=== PATIENT | female | born 1965 | race Caucasian/White ===

== ENCOUNTER 2018-06-27 12:00 | Observation (INO) | payer SELFPAY ==
--- NOTE | 2018-06-27 12:30 | ER Document Report ---
ED Medical Screen (RME) - General Chief Complaint: Numbness of Arm Stated Complaint: NECK/SHOULDER PAIN, ARM TINGLING Time Seen by Provider: 06/27/18 12:19 Mode of Arrival: Ambulatory Information source: Patient, [facility] Records Notes: 53-year-old female with COPD, ulcerative colitis presents with concern for left arm paresthesias, confusion, inability to speak that occurred 1 hour prior to arrival while at work. Patient denies prior similar symptoms. I have greeted and performed a rapid initial assessment of this patient. A comprehensive ED assessment and evaluation of the patient, analysis of test results and completion of medical decision making process we will be contacted by additional ED providers. General; no acute distress Neuro; cranial nerves II through XII intact Respiratory; clear to auscultation bilaterally TRAVEL OUTSIDE OF THE [place] IN LAST 30 DAYS: No - HPI Onset: Just prior to arrival Onset/Duration: Sudden Associated Symptoms: Slow to respond Exacerbated by: Denies Relieved by: Denies Similar symptoms previously: No Recently seen / treated by doctor: No - Related Data Smoking: Cigarettes Frequency of alcohol use: None Drug Abuse: None Allergies/Adverse Reactions: No Known Allergies Allergy (Unverified 06/27/18 12:03) Past Medical History Pulmonary Medical History: Reports: Hx COPD Renal/ Medical History: Denies: Hx Peritoneal Dialysis Past Surgical History: Reports: Hx Hysterectomy Physical Exam - Vital signs Vitals: Temp Pulse Resp BP Pulse Ox 97.6 F 67 16 130/77 H 97 06/27/18 12:08 06/27/18 12:08 06/27/18 12:08 06/27/18 12:08 06/27/18 12:08 Course - Vital Signs Vital signs: Temp Pulse Resp BP Pulse Ox 97.6 F 67 16 130/77 H 97 06/27/18 12:08 06/27/18 12:08 06/27/18 12:08 06/27/18 12:08 06/27/18 12:08
--- NOTE | 2018-06-27 12:52 | RADIOLOGY REPORT (SQ) ---
EXAM DESCRIPTION: CT HEAD WITHOUT COMPLETED DATE/TIME: 06/27/2018 12:37 pm REASON FOR STUDY: Confusion, left arm weakness COMPARISON: None. TECHNIQUE: Axial images acquired through the brain without intravenous contrast. Images reviewed wi th bone, brain and subdural windows. Additional sagittal and coronal reconstructions were generated. Images stored on PACS. All CT scanners at this facility use dose modulation, iterative reconstruction, and/or weight based d osing when appropriate to reduce radiation dose to as low as reasonably achievable (ALARA). [facility]: Dose Right [facility]: CareDose [facility]: Dose Right [facility]: Teradose 4D [facility]: Smart Technologies RADIATION DOSE: CT Rad equipment meets quality standard of care and radiation dose reduction techniq ues were employed. CTDIvol: 53.2 mGy. DLP: 1070 mGy-cm. mGy. LIMITATIONS: None. FINDINGS: VENTRICLES: Normal size and contour. CEREBRUM: No masses. No hemorrhage. No midline shift. No evidence for acute infarction. Normal gra y/white matter differentiation. No areas of low density in the white matter. CEREBELLUM: No masses. No hemorrhage. No alteration of density. No evidence for acute infarction. EXTRAAXIAL SPACES: No fluid collections. No masses. ORBITS AND GLOBE: No intra- or extraconal masses. Normal contour of globe without masses. CALVARIUM: No fracture. PARANASAL SINUSES: Small mucosal polyps or retention cysts are identified in both maxillary antra. SOFT TISSUES: No mass or hematoma. OTHER: No other significant finding. IMPRESSION: NORMAL BRAIN CT WITHOUT CONTRAST. EVIDENCE OF ACUTE STROKE: NO. COMMENT: Pertinent positive or negative findings of the imaging study reported as a CRITICAL EXAM josé miguel REYNOSO DO at12:39 on 06/27/2018. Category of Critical Exam: Stroke alert Quality ID # [id number]: Final reports with documentation of one or more dose reduction techniques (e.g., Au tomated exposure control, adjustment of the mA and/or kV according to patient size, use of iterative reconstruction technique) TECHNICAL DOCUMENTATION: JOB ID: [id number] [employer]- All Rights Reserved Reading location - IP/workstation name: [email or web address]
[2018-06-27 12:59] LABS: PARTIAL THROMBOPLASTIN TIME 28.5 SEC (23.5-35.8)
[2018-06-27 13:01] LABS: PROTHROMBIN TIME 12.6 SEC (11.4-15.4)
[2018-06-27 13:15] LABS: ABSOLUTE BASOPHILS # (AUTO) 0.1 10^3/uL (0.0-0.2); ABSOLUTE EOSINOPHILS # (AUTO) 0.2 10^3/uL (0.0-0.6); ABSOLUTE MONOCYTES (AUTO) 0.7 10^3/uL (0.1-1.4); ABSOLUTE NEUT (AUTO) 3.5 10^3/uL (1.7-8.2); BASOPHILS % (AUTO) 1.2 % (0-2); EOSINOPHILS % (AUTO) 2.7 % (0-6); HEMATOCRIT 40.9 % (36.0-47.0); HEMOGLOBIN 14.3 g/dL (12.0-15.5); LYMPHOCYTES % (AUTO) 31.3 % (13-45); MEAN CORPUSCULAR HEMOGLOBIN 31.5 pg (27.0-33.4); MEAN CORPUSCULAR VOLUME 90 fl (80-97); MONOCYTES % (AUTO) 10.8 % (3-13); PLATELET COUNT 350 10^3/uL (150-450); RED BLOOD COUNT 4.55 10^6/uL (3.72-5.28); RED CELL DISTRIBUTION WIDTH 14.2 % (11.5-14.0); TOTAL CELLS COUNTED % (AUTO) 100 %; WHITE BLOOD COUNT 6.4 10^3/uL (4.0-10.5)
--- NOTE | 2018-06-27 13:15 | RADIOLOGY REPORT (SQ) ---
EXAM DESCRIPTION: CHEST SINGLE VIEW COMPLETED DATE/TIME: 06/27/2018 12:43 pm REASON FOR STUDY: Confusion, left arm weakness COMPARISON: None. EXAM PARAMETERS: NUMBER OF VIEWS: One view. TECHNIQUE: Single frontal radiographic view of the chest acquired. RADIATION DOSE: NA LIMITATIONS: None. FINDINGS: LUNGS AND PLEURA: There are prominent nipple shadows bilaterally. No consolidation or eff usions. No pneumothorax. MEDIASTINUM AND HILAR STRUCTURES: No masses. Contour normal. HEART AND VASCULAR STRUCTURES: Heart normal in size. Normal vasculature. BONES: No acute findings. HARDWARE: None in the chest. OTHER: No other significant finding. IMPRESSION: NO ACUTE RADIOGRAPHIC FINDING IN THE CHEST. TECHNICAL DOCUMENTATION: JOB ID: [id number] [employer]- All Rights Reserved Reading location - IP/workstation name: [email or web address]
--- NOTE | 2018-06-27 13:34 | ER Document Report ---
ED General - General Chief Complaint: Numbness of Arm Stated Complaint: NECK/SHOULDER PAIN, ARM TINGLING Time Seen by Provider: 06/27/18 12:19 Mode of Arrival: Ambulatory Information source: Patient Notes: 53-year-old female presents emergency department with complaints of left upper extremity numbness and tingling that started at 1030 this morning. Patient states that her symptoms have gradually been improving. She currently denies any current numbness or tingling. She denies having any weakness of the left upper extremity. Patient also denies any vision changes, speech changes, lower extremity numbness, tingling, weakness. Patient is able to ambulate without difficulty. Patient denies any chest pain or shortness of breath. Patient denies any neck trauma or injury. Patient denies a history of strokes in the past. TRAVEL OUTSIDE OF THE [place] IN LAST 30 DAYS: No - HPI Onset: This morning Onset/Duration: Sudden Quality of pain: No pain Severity: Severe Pain Level: Denies Associated symptoms: None Exacerbated by: Denies Relieved by: Denies Similar symptoms previously: No - Related Data Allergies/Adverse Reactions: No Known Allergies Allergy (Unverified 06/27/18 12:03) Past Medical History - General Information source: Patient, [facility] Records - Social History Smoking Status: Current Every Day Smoker Frequency of alcohol use: None Drug Abuse: None Family History: Reviewed & Not Pertinent Patient has suicidal ideation: No Patient has homicidal ideation: No Pulmonary Medical History: Reports: Hx COPD Renal/ Medical History: Denies: Hx Peritoneal Dialysis Past Surgical History: Reports: Hx Hysterectomy Physical Exam - Vital signs Vitals: Temp Pulse Resp BP Pulse Ox 97.6 F 67 16 130/77 H 97 06/27/18 12:08 06/27/18 12:08 06/27/18 12:08 06/27/18 12:08 06/27/18 12:08 Course - Re-evaluation Re-evalutation: 06/27/18 14:44 Numbness and tingling completely resolved. Ct head is within normal limits. Labs are unremarkable. Patient denies a stroke history previously. I contacted the hospitalist for admission. Dr. Espinoza is agreeable with admitting the patient. - Vital Signs Vital signs: Temp Pulse Resp BP Pulse Ox 97.6 F 67 23 H 115/79 95 06/27/18 12:08 06/27/18 12:08 06/27/18 13:16 06/27/18 13:16 06/27/18 13:16 - Laboratory Result Diagrams: 06/27/18 12:48 06/27/18 12:48 Laboratory results interpreted by me: 06/27/18 06/27/18 12:45 12:48 RDW 14.2 H POC Glucose 118 H Discharge - Discharge Clinical Impression: TIA (transient ischemic attack) Condition: Good Disposition: ADMITTED OBSERVATION Admitting Provider: Hospitalist Unit Admitted: IMCU
[2018-06-27 13:41] LABS: ALANINE AMINOTRANSFERASE 22 U/L (9-52); ALKALINE PHOSPHATASE 61 U/L (38-126); ANION GAP 6 (5-19); ASPARTATE AMINO TRANSFERASE 18 U/L (14-36); BILIRUBIN,DIRECT 0.4 mg/dL (0.0-0.4); BILIRUBIN,TOTAL 0.4 mg/dL (0.2-1.3); BLOOD UREA NITROGEN 11 mg/dL (7-20); CALCIUM 9.5 mg/dL (8.4-10.2); CARBON DIOXIDE 29 mmol/L (22-30); CHLORIDE 105 mmol/L (98-107); CREATINE KINASE 45 U/L (30-135); GLUCOSE 97 mg/dL (75-110); POTASSIUM 4.3 mmol/L (3.6-5.0); SODIUM 139.8 mmol/L (137-145); TOTAL PROTEIN 6.7 g/dL (6.3-8.2)
[2018-06-27 13:50] LABS: CREATINE KINASE MB 0.44 ng/mL (<4.55); TROPONIN I < 0.012 ng/mL
--- NOTE | 2018-06-27 16:21 | PDOC H&P ---
History of Present Illness Admission Date/PCP: 06/27/18 15:09 Patient complains of: Left arm numbness and weakness History of Present Illness: PILAR MELENDEZ is a 53 year old woman who has past medical history significant for tobacco use disorder, COPD, ulcerative colitis. 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 Then her arm became very heavy and she lost sensation. She felt a little bit weak as well. The patient also had some dyspnea, diaphoresis , nausea. She states that her friends were asking her questions when the events were taking place and she could not remember her age. She drove herself to the ER. Now she states she feels back to normal. Generally she remembers all of the events, did not lose consciousness, does remember being somewhat confused momentarily. She is admitted to the hospitalist service for evaluation for cerebrovascular and cardiovascular disease causing symptoms. Past Medical History Cardiac Medical History: Denies: Atrial Fibrillation, Congestive Heart Failure, Coronary Artery Disease, Myocardial Infarction Pulmonary Medical History: Reports: Chronic Obstructive Pulmonary Disease (COPD) EENT Medical History: Reports: Eyes Denies: Cataracts Neurological Medical History: Denies: Ischemic CVA, Seizures Endocrine Medical History: Denies: Diabetes Mellitus Type 2, Hyperthyroidism, Hypothyroidism Renal/ Medical History: Denies: Chronic Kidney Disease Malignancy Medical History: Denies: None GI Medical History: Reports: Ulcerative Colitis Musculoskeltal Medical History: Denies: Arthritis Skin Medical History: Denies: Eczema, Psoriasis Psychiatric Medical History: Reports: Tobacco Dependency Traumatic Medical History: Denies: None Hematology: Denies: Anemia, Bleeding Tendencies Infectious Medical History: Denies: Clostridium Difficile, Hepatitis B, Hepatitis C, HIV, Methicillin- Resistant Staph Aureus Past Surgical History Past Surgical History: Reports: Hysterectomy, Other - Patient has had 2 laparoscopic surgeries for endometriosis Social History Lives with: Family Smoking Status: Current Every Day Smoker Cigarettes Packs Per Day: 1 Number of Years Smokin Amount of Alcoholic Beverages Per Day: 2 beers per day Hx Recreational Drug Use: No Drugs: None - Advance Directive Resuscitation Status: Full Code Surrogate healthcare decision maker:: Her son Yan Melendez, phone number [phone]. The initial contact should be his as he cannot take his phone into work. She is Estephania Melendez [phone] Family History Family History: Malignancy Parental Family History Reviewed: Yes - Mom with CHF, father healthy at 78 Children Family History Reviewed: Yes - Her children are healthy Sibling(s) Family History Reviewed.: Yes - She had a younger brother that of metastatic cancer, secondary to an acute NC possibly treatment related Medication/Allergy Home Medications: No Home Medications 06/27/18 Allergies/Adverse Reactions: No Known Allergies Allergy (Unverified 06/27/18 12:03) Review of Systems Constitutional: ABSENT: anorexia, chills, fatigue, headache(s), night sweats Eyes: PRESENT: other - Wears glasses. ABSENT: visual disturbances Ears: ABSENT: hearing changes Nose, Mouth, and Throat: ABSENT: headache(s), mouth pain, sore throat Cardiovascular: PRESENT: chest pain. ABSENT: dyspnea on exertion, edema, orthropnea, palpitations Respiratory: PRESENT: dyspnea. ABSENT: cough Gastrointestinal: PRESENT: nausea, other - Liquid stools due to ulcerative colitis, no obvious bleeding. ABSENT: abdominal pain, coffee ground emesis, vomiting Genitourinary: ABSENT: difficulty urinating, hematuria Musculoskeletal: ABSENT: joint swelling Integumentary: ABSENT: lesions, wounds Neurological: PRESENT: focal weakness, numbness, tingling. ABSENT: convulsions Psychiatric: ABSENT: anxiety, depression Endocrine: ABSENT: cold intolerance, heat intolerance, polyphagia, polyuria Hematologic/Lymphatic: ABSENT: easy bleeding, easy bruising Allergic/Immunologic: ABSENT: seasonal rhinorrhea Physical Exam Vital Signs: Temp Pulse Resp BP Pulse Ox 97.6 F 66 18 130/78 H 96 06/27/18 12:08 06/27/18 15:00 06/27/18 15:03 06/27/18 15:03 06/27/18 15:03 General appearance: PRESENT: no acute distress, cooperative, thin Head exam: PRESENT: atraumatic, normocephalic Eye exam: PRESENT: EOMI. ABSENT: conjunctival injection, scleral icterus Mouth exam: PRESENT: moist, tongue midline Respiratory exam: PRESENT: decreased breath sounds, unlabored, wheezes. ABSENT : rales, rhonchi Cardiovascular exam: PRESENT: RRR. ABSENT: systolic murmur Pulses: PRESENT: normal radial pulses, normal dorsalis pedis pul GI/Abdominal exam: PRESENT: normal bowel sounds, soft. ABSENT: distended, tenderness Rectal exam: PRESENT: deferred Gentrourinary exam: ABSENT: indwelling catheter Extremities exam: ABSENT: joint swelling, pedal edema Neurological exam: PRESENT: alert, awake, oriented to person, oriented to place , oriented to situation, CN II-XII grossly intact, other - Strength 5 out of 5 in all extremities Psychiatric exam: PRESENT: appropriate affect. ABSENT: anxious Skin exam: PRESENT: dry, intact, warm Results Impressions: Chest X-Ray 06/27/18 12:28 IMPRESSION: NO ACUTE RADIOGRAPHIC FINDING IN THE CHEST. Head CT 06/27/18 12:28 IMPRESSION: NORMAL BRAIN CT WITHOUT CONTRAST. EVIDENCE OF ACUTE STROKE: NO. Assessment & Plan - Diagnosis (1) TIA (transient ischemic attack) Is this a current diagnosis for this admission?: Yes Plan: Patient had sudden onset transient tingling than numbness and weakness of the left arm. Symptoms consistent with stroke. Her symptoms are now resolved. CT scan of the head negative. MRI without contrast pending. Carotid duplex and echocardiogram pending as well. Troponins are being trended. Statin has been started. Pressure is controlled. Tobacco cessation counseling has been performed for approximately 10 minutes. (2) Chest discomfort Is this a current diagnosis for this admission?: Yes Plan: Around the time of the patient's left arm symptoms she also had nausea chest discomfort and diaphoresis. First set of cardiac enzymes is negative. Full set will be trended. She is pain-free at this time. If she is stable we can perform stress test prior to discharge. (3) COPD (chronic obstructive pulmonary disease) Is this a current diagnosis for this admission?: Yes Plan: Patient is slightly wheezy. We will start her on scheduled duo nebs. I have also consulted the web weaver to evaluate her for need for COPD treatment other than as needed albuterol. (4) Tobacco use disorder Is this a current diagnosis for this admission?: Yes Plan: 10 minutes of tobacco cessation counseling was performed. Patient is motivated to quit. She has 2 young grandchildren. (5) Lung nodule Is this a current diagnosis for this admission?: Yes Plan: Patient tells me that she has a lung nodule that was followed in the past routinely with chest imaging. She has recently moved to this area from [place] and needs a web weaver to follow her. I have consulted Dr. Ohara. - Time Time Spent: 50 to 70 Minutes Smoking Cessation Education: 3 to 10 minutes Medications reviewed and adjusted accordingly: Yes - Inpatient Certification Based on my medical assessment, after consideration of the patient's comorbidities, presenting symptoms, or acuity I expect that the services needed warrant INPATIENT care.: Yes I certify that my determination is in accordance with my understanding of Medicare's requirements for reasonable and necessary INPATIENT services [42 CFR 412.3e].: Yes Medical Necessity: Need Close Monitoring Due to Risk of Patient Decompensation, Risk of Complication if Not Cared For in Hospital
--- NOTE | 2018-06-27 17:41 | RADIOLOGY REPORT (SQ) ---
EXAM DESCRIPTION: MRI HEAD WITHOUT COMPLETED DATE/TIME: 06/27/2018 5:32 pm REASON FOR STUDY: tia COMPARISON: CT brain dated 06/27/2018 TECHNIQUE: Multiplanar imaging includes non-contrasted T1, T2, FLAIR, and diffusion with ADC map seq uences. Images stored on PACS. LIMITATIONS: None. FINDINGS: ANATOMY: No anomalies. Normal vascular flow voids. Pituitary fossa normal. CSF SPACES: Normal in size and contour. No hemorrhage. CEREBRUM: Sulci and gyri normal in size and contour. Normal white matter signal on FLAIR imaging. No evidence of hemorrhage, mass, or extraaxial fluid collection. POSTERIOR FOSSA: No signal alteration. No hemorrhage. No edema, masses or mass effect. Internal juliana tory canals, cerebello-pontine angles, mastoids normal. DIFFUSION IMAGING: Negative for acute or sub-acute infarction. ORBITS: No masses. Globes normal. PARANASAL SINUSES: There retention cyst or polyps in the maxillary sinuses. OTHER: No other significant finding. IMPRESSION: NORMAL MRI OF THE BRAIN WITHOUT INTRAVENOUS GADOLINIUM CONTRAST. EVIDENCE OF ACUTE STROKE: NO. TECHNICAL DOCUMENTATION: JOB ID: [id number] [employer]- All Rights Reserved Reading location - IP/workstation name: [email or web address]
--- NOTE | 2018-06-27 19:36 | EKG REPORT ---
SEVERITY:- BORDERLINE ECG - SINUS RHYTHM BORDERLINE IVCD WITH LAD : Confirmed by: Karolina Cr MD 27-Jun-2018 19:35:06
[2018-06-27 20:14] LABS: CREATINE KINASE MB 0.48 ng/mL (<4.55)
[2018-06-27 20:23] LABS: TROPONIN I < 0.012 ng/mL
[2018-06-27] MEDS: SIMVASTATIN 40 MG TABLET PO SCH (21:53)
[2018-06-27] MEDS ORDERED: CALCIUM CARBONATE 500 MG TAB.CHEW PO PRN (22:33)
[2018-06-27] MEDS: IPRATROPIUM/ALBUTEROL 0.5-2.5 MG/3 ML AMPUL NEB SCH (23:58)
[2018-06-28 02:14] LABS: TROPONIN I < 0.012 ng/mL
[2018-06-28 07:50] LABS: HEMATOCRIT 39.2 % (36.0-47.0); HEMOGLOBIN 13.4 g/dL (12.0-15.5); MEAN CORPUSCULAR HEMOGLOBIN 31.3 pg (27.0-33.4); MEAN CORPUSCULAR HGB CONC 34.3 g/dL (32.0-36.0); MEAN CORPUSCULAR VOLUME 91 fl (80-97); PLATELET COUNT 323 10^3/uL (150-450); RED CELL DISTRIBUTION WIDTH 14.3 % (11.5-14.0); WHITE BLOOD COUNT 6.3 10^3/uL (4.0-10.5)
--- NOTE | 2018-06-28 08:10 | RADIOLOGY REPORT (SQ) ---
EXAM DESCRIPTION: CAROTID DOPPLER COMPLETED DATE/TIME: 06/27/2018 9:19 pm REASON FOR STUDY: TIA wih confusion COMPARISON: None. TECHNIQUE: Grayscale ultrasound, Doppler velocity and spectra, and color Doppler images acquired of the extra-cranial carotid and vertebral arteries. Images stored on PACS. LIMITATIONS: None. FINDINGS: RIGHT CAROTID CCA Velocities: Within normal limits. ICA Velocities Peak systolic 1.28 m/s. End diastolic 0.43 m/s. Proximal ICA/CCA peak systolic ratio 1.8. There is soft plaque at the carotid bulb and proximal ICA. LEFT CAROTID CCA Velocities: Within normal limits. ICA Velocities Peak systolic 1.09 m/s. End diastolic 0.39 m/s. Proximal ICA/CCA peak systolic ratio 1.8. Soft plaque is noted at the bifurcation and proximal ICA. VERTEBRAL ARTERIES: Antegrade flow. Normal waveforms. SUBCLAVIAN ARTERIES: No finding. OTHER: No other significant finding. IMPRESSION: 1. No hemodynamically significant stenosis on the left. 2. Slowly elevated velocities in the distal right ICA. No significant plaque at this site. Based o n velocities degree of stenosis is between 50 and 69%. COMMENT: Quality ID #[id number]: Velocity criteria are extrapolated from the diameter data as defined by josé miguel melendez Society of Radiologists in Ultrasound Consensus Conference. Radiology 2003: 229; 340-346. TECHNICAL DOCUMENTATION: JOB ID: [id number] [employer]- All Rights Reserved Reading location - IP/workstation name: [email or web address]
[2018-06-28 08:12] LABS: ANION GAP 7 (5-19); BLOOD UREA NITROGEN 15 mg/dL (7-20); CALCIUM 9.5 mg/dL (8.4-10.2); CARBON DIOXIDE 27 mmol/L (22-30); CHLORIDE 105 mmol/L (98-107); CHOLESTEROL 205.77 mg/dL (0-200); CREATINE KINASE 29 U/L (30-135); GLUCOSE 89 mg/dL (75-110); POTASSIUM 4.2 mmol/L (3.6-5.0); SODIUM 138.5 mmol/L (137-145); TRIGLYCERIDES 80 mg/dL (<150)
[2018-06-28 08:22] LABS: DIRECT LDL 135 mg/dL (<100)
[2018-06-28 08:28] LABS: TROPONIN I < 0.012 ng/mL
[2018-06-28] MEDS: IPRATROPIUM/ALBUTEROL 0.5-2.5 MG/3 ML AMPUL NEB SCH (08:35)
[2018-06-28] MEDS ORDERED: LEVALBUTEROL HCL NEB 1.25 MG/3 ML AMPUL NEB PRN (10:37)
[2018-06-28] MEDS: ASPIRIN 325 MG TABLET, ENT COATED PO SCH (12:16)
[2018-06-28] MEDS: ENOXAPARIN SODIUM INJ 40 MG/0.4 ML DISP.SYRIN SUBCUT SCH (12:17)
[2018-06-28] MEDS: BUDESONIDE/FORMOTEROL 80-4.5 MCG 60 PUFF/6.9 GM MDI IH SCH ×2 (12:17→21:27)
[2018-06-28] MEDS ORDERED: TIOTROPIUM BROMIDE DPI 5 CAP/KIT (18 MCG/CAP) IH ONE (12:30)
[2018-06-28] MEDS ORDERED: NICOTINE 21 MG/24 HR PATCH.TD24 TD PRN (12:59)
--- NOTE | 2018-06-28 13:09 | PDOC PROGRESS REPORT ---
Subjective Progress Note for:: 06/28/18 Subjective:: PILAR KUMAR is a 53 year old woman who has past medical history significant for tobacco use disorder, COPD, ulcerative colitis. 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 Then her arm became very heavy and she lost sensation. She felt a little bit weak as well. The patient also had some dyspnea, diaphoresis , nausea. She states that her friends were asking her questions when the events were taking place and she could not remember her age. She drove herself to the ER. Now she states she feels back to normal. Patient is back to baseline. MRI was negative carotid duplex shows stenosis estimated at 50-69% on the right. Patient's history though is that of onset of chest pain diaphoresis and left arm numbness. She had no leg involvement. She is at risk for coronary disease and her presenting complaint may be anginal. Her cholesterol is elevated and she currently is on a statin and she has been started on aspirin therapy for a suspected TIA. She currently has no complaints Reason For Visit: TRANSIENT ISCHEMIC ATTACK, CHEST DISCOMFORT Physical Exam Vital Signs: Temp Pulse Resp BP Pulse Ox 98.0 F 80 16 115/57 L 97 06/28/18 11:26 06/28/18 12:05 06/28/18 12:00 06/28/18 12:00 06/28/18 12:00 Intake & Output 06/27/18 06/28/18 06/29/18 06:59 06:59 06:59 Intake Total 444 Balance 444 Weight 63.7 kg General appearance: PRESENT: no acute distress, well-developed, well-nourished Neck exam: ABSENT: carotid bruit, JVD, lymphadenopathy, thyromegaly Respiratory exam: PRESENT: clear to auscultation marilynn. ABSENT: rales, rhonchi, wheezes Cardiovascular exam: PRESENT: RRR. ABSENT: diastolic murmur, rubs, systolic murmur GI/Abdominal exam: PRESENT: normal bowel sounds, soft. ABSENT: distended, guarding, mass, organolmegaly, rebound, tenderness Neurological exam: PRESENT: alert, awake, oriented to person, oriented to place , oriented to time, oriented to situation, CN II-XII grossly intact. ABSENT: motor sensory deficit Results Laboratory Results: 06/28/18 07:15 06/28/18 07:15 06/28/18 06/28/18 07:15 07:15 WBC 6.3 RBC 4.30 Hgb 13.4 Hct 39.2 MCV 91 MCH 31.3 MCHC 34.3 RDW 14.3 H Plt Count 323 Sodium 138.5 Potassium 4.2 Chloride 105 Carbon Dioxide 27 Anion Gap 7 BUN 15 Creatinine 0.69 Est GFR ( Amer) > 60 Est GFR (Non-Af Amer) > 60 Glucose 89 Calcium 9.5 Triglycerides 80 Cholesterol 205.77 H LDL Cholesterol Direct 135 H VLDL Cholesterol 16.0 HDL Cholesterol 55 06/27/18 06/27/18 06/28/18 19:35 19:35 01:19 Creatine Kinase 39 32 CK-MB (CK-2) 0.48 Troponin I < 0.012 06/28/18 06/28/18 06/28/18 01:19 07:15 07:15 Creatine Kinase 29 L CK-MB (CK-2) 0.30 0.30 Troponin I < 0.012 < 0.012 Impressions: Head MRI 06/27/18 00:00 IMPRESSION: NORMAL MRI OF THE BRAIN WITHOUT INTRAVENOUS GADOLINIUM CONTRAST. EVIDENCE OF ACUTE STROKE: NO. Chest X-Ray 06/27/18 12:28 IMPRESSION: NO ACUTE RADIOGRAPHIC FINDING IN THE CHEST. Head CT 06/27/18 12:28 IMPRESSION: NORMAL BRAIN CT WITHOUT CONTRAST. EVIDENCE OF ACUTE STROKE: NO. Carotid Doppler Study 06/27/18 15:58 IMPRESSION: 1. No hemodynamically significant stenosis on the left. 2. Slowly elevated velocities in the distal right ICA. No significant plaque at this site. Based on velocities degree of stenosis is between 50 and 69%. Assessment & Plan - Diagnosis (1) Chest pain Is this a current diagnosis for this admission?: Yes Plan: Patient history consistent more with angina and TIA. Will schedule patient for stress test in morning. Continue aspirin and statin (2) COPD (chronic obstructive pulmonary disease) Is this a current diagnosis for this admission?: Yes Plan: Currently no exacerbation as needed nebulizers. Pulmonary consulted for suspected nodule on chest x-ray (3) Lung nodule Is this a current diagnosis for this admission?: Yes Plan: Noted on chest x-ray Case discussed with Dr. Ohara. Tobacco cessation stressed to patient. (4) TIA (transient ischemic attack) Is this a current diagnosis for this admission?: Yes Plan: No neuro deficit. MRI negative Echo pending carotid stenosis on right 50-60% but no plaque visualized at the level of ultrasound. Consider MRA in future to define distal disease (5) Tobacco use disorder Is this a current diagnosis for this admission?: Yes Plan: NicoDerm counseling provided.
--- NOTE | 2018-06-28 15:19 | RADIOLOGY REPORT (SQ) ---
EXAM DESCRIPTION: CT CHEST WITHOUT COMPLETED DATE/TIME: 06/28/2018 3:05 pm REASON FOR STUDY: lung nodule COMPARISON: Chest x-ray dated 06/27/2018 TECHNIQUE: CT scan performed of the chest without intravenous contrast. Images reviewed with lung, soft tissue and bone windows. Reconstructed coronal and sagittal MPR images reviewed. All images st ored on PACS. All CT scanners at this facility use dose modulation, iterative reconstruction, and/or weight based d osing when appropriate to reduce radiation dose to as low as reasonably achievable (ALARA). [facility]: Dose Right [facility]: CareDose [facility]: Dose Right [facility]: Teradose 4D [facility]: [employer] RADIATION DOSE: CT Rad equipment meets quality standard of care and radiation dose reduction techniq ues were employed. CTDIvol: 5.2 mGy. DLP: 188 mGy-cm. mGy. LIMITATIONS: No technical limitations. FINDINGS: LUNGS AND PLEURA: No masses, infiltrates, or pneumothorax. No pleural effusions or pleura l calcifications. Scattered small bullous changes are identified. No discrete pulmonary nodule is i dentified. HILAR AND MEDIASTINAL STRUCTURES: No identified masses or abnormal nodes. No obvious aneurysm. HEART AND VASCULAR STRUCTURES: No aneurysm. No pericardial effusion. UPPER ABDOMEN: No significant findings. Limited exam. THYROID AND OTHER SOFT TISSUES: No masses. No adenopathy. BONES: No significant finding. HARDWARE: None in the chest. OTHER: No other significant findings. IMPRESSION: NO SIGNIFICANT FINDING ON NON-CONTRASTED CHEST CT. TECHNICAL DOCUMENTATION: JOB ID: [id number] Quality ID # [id number]: Final reports with documentation of one or more dose reduction techniques (e.g., Au tomated exposure control, adjustment of the mA and/or kV according to patient size, use of iterative reconstruction technique) 2010 [employer]- All Rights Reserved Reading location - IP/workstation name: [email or web address]
--- NOTE | 2018-06-28 17:00 | XCELERA REPORT ---
[address] [address] Transthoracic Echocardiogram Report Name: PILAR KUMAR Age: 53 yrs Gender: Female : 1965 Patient Status: Inpatient Patient Location: [facility]^A Study Date: 06/27/2018 07:53 PM Height: 64 in Weight: 135 lb BSA: 1.7 m2 Procedure: A two-dimensional transthoracic echocardiogram with color flow and Doppler was performed. The study was technically difficult with many images being suboptimal in quality. Reason For Study: TIA, cryptogenic History: TIA, cryptogenic. Ordering Physician: MIGUELANGEL RILEY Performed By: Sara Villafana Interpretation Summary There is no obvious cardiac source of embolus noted on this transthoracic echocardiogram. Follow-up with a ESTELITA is suggested if cardiac source is still suspected. The left ventricle is normal in size. There is normal left ventricular wall thickness. LV EF is 60% Left ventricular systolic function is normal. Doppler measurements suggest normal left ventricular diastolic function The left ventricular wall motion is normal. The right ventricle is grossly normal size. The right atrium is normal. The left atrial size is normal. There is no evidence of mitral valve prolapse. There is no vegetation seen on the mitral valve. There is no mitral valve stenosis. There is no mitral regurgitation noted. There is no aortic valve stenosis There is no LVOT obstruction. No aortic regurgitation is present. There is no tricuspid stenosis. There is a trace amount of tricuspid regurgitation Right ventricular systolic pressure is normal. RVSP is 8 to 13 mm of Hg , with RA mean of 5 to 10. There is no pulmonic valvular regurgitation. There is no pulmonic valvular stenosis. The aortic root is normal size. There is no pericardial effusion. There is no obvious cardiac source of embolus noted on this transthoracic echocardiogram. Follow-up with a ESTELITA is suggested if cardiac source is still suspected MMode/2D Measurements & Calculations RVDd: 1.8 cm LVIDd: 5.2 cm FS: 29.0 % Ao root diam: 2.4 cm IVSd: 0.75 cm LVIDs: 3.7 cm EDV(Teich): 129.5 ml Ao root area: 4.6 cm2 LVPWd: 0.78 cm ESV(Teich): 57.8 ml LA dimension: 2.6 cm EF(Teich): 55.4 % Doppler Measurements & Calculations MV E max bradley: MV P1/2t max bradley: Ao V2 max: LV V1 max P.1 cm/sec 81.4 cm/sec 124.1 cm/sec 4.1 mmHg MV A max bradley: MV P1/2t: 51.7 msec Ao max P.2 mmHg LV V1 max: 68.1 cm/sec MVA(P1/2t): 4.3 cm2 101.2 cm/sec MV E/A: 1.0 MV dec slope: 461.6 cm/sec2 MV dec time: 0.24 sec TV V2 max: PA V2 max: MV P1/2t-pr_phl: 89.2 cm/sec 103.9 cm/sec 51.7 msec TV max PG: PA max P.3 mmHg 3.2 mmHg Left Ventricle The left ventricle is normal in size. There is normal left ventricular wall thickness. LV EF is 60%. Left ventricular systolic function is normal. Doppler measurements suggest normal left ventricular diastolic function. The left ventricular wall motion is normal. There is no thrombus. Right Ventricle The right ventricle is grossly normal size. Atria The right atrium is normal. The left atrial size is normal. Mitral Valve There is no evidence of mitral valve prolapse. There is no vegetation seen on the mitral valve. There is no mitral valve stenosis. There is no mitral regurgitation noted. Aortic Valve There is no aortic valvular vegetation. There is no aortic valve stenosis. There is no LVOT obstruction. No aortic regurgitation is present. Tricuspid Valve There is no tricuspid stenosis. There is a trace amount of tricuspid regurgitation. Right ventricular systolic pressure is normal. RVSP is 8 to 13 mm of Hg , with RA mean of 5 to 10. Pulmonic Valve There is no pulmonic valvular stenosis. There is no pulmonic valvular regurgitation. Great Vessels The aortic root is normal size. Effusions There is no pericardial effusion. : MIGUELANGEL RILEY > Karolina Cr
[2018-06-28] MEDS: SIMVASTATIN 40 MG TABLET PO SCH (21:27)
[2018-06-29 07:32] LABS: ANION GAP 7 (5-19); BLOOD UREA NITROGEN 12 mg/dL (7-20); CALCIUM 9.5 mg/dL (8.4-10.2); CARBON DIOXIDE 25 mmol/L (22-30); CHLORIDE 108 mmol/L (98-107); GLUCOSE 87 mg/dL (75-110); POTASSIUM 4.1 mmol/L (3.6-5.0); SODIUM 139.6 mmol/L (137-145)
[2018-06-29] MEDS ORDERED: REGADENOSON INJ 0.4 MG/5 ML DISP.SYRIN IV ONE (10:13)
[2018-06-29] MEDS: ASPIRIN 325 MG TABLET, ENT COATED PO SCH (11:34)
[2018-06-29] MEDS: ENOXAPARIN SODIUM INJ 40 MG/0.4 ML DISP.SYRIN SUBCUT SCH (11:34)
[2018-06-29] MEDS: BUDESONIDE/FORMOTEROL 80-4.5 MCG 60 PUFF/6.9 GM MDI IH SCH (11:34)
[2018-06-29 13:51] VITALS: BP 144/68
--- NOTE | 2018-06-29 13:55 | PDOC DISCHARGE SUMMARY ---
General - Admit/Disc Date/PCP Admission Date/Primary Care Provider: 06/27/18 15:09 Discharge Date: 06/29/18 - Discharge Diagnosis (1) Chest pain Is this a current diagnosis for this admission?: Yes Summary: Patient underwent nuclear stress test which was negative for inducible ischemia (2) COPD (chronic obstructive pulmonary disease) Is this a current diagnosis for this admission?: Yes Summary: Evaluated by pulmonary initiated on Symbicort (3) Lung nodule Is this a current diagnosis for this admission?: Yes Summary: CT ruled out pulmonary nodule patient has emphysematous changes noted (4) TIA (transient ischemic attack) Is this a current diagnosis for this admission?: Yes Summary: Discharged on Zocor and aspirin (5) Tobacco use disorder Is this a current diagnosis for this admission?: Yes (6) Carotid stenosis, right Is this a current diagnosis for this admission?: Yes Summary: 50-69% estimated by velocities no plaque seen on ultrasound suspected to be distal - Additional Information Resuscitation Status: Full Code Discharge Diet: Cardiac Discharge Activity: Activity As Tolerated Prescriptions: Budesonide/Formoterol Fumarate [Symbicort HFA 80-4.5 mcg Inhaler 6.9 gm] 2 puff IH Q12 #1 inhaler Simvastatin [Zocor 40 mg Tablet] 80 mg PO QHS #30 tablet Home Medications: Aspirin [Ecotrin 325 mg EC Tablet] 325 mg PO DAILY tabec 06/29/18 Budesonide/Formoterol Fumarate [Symbicort HFA 80-4.5 mcg Inhaler 6.9 gm] 2 puff IH Q12 #1 inhaler 06/29/18 Nicotine [Nicoderm 21 mg/24 Hr Transderm Patch] 1 each TD DAILYP PRN patch.td24 06/29/18 Simvastatin [Zocor 40 mg Tablet] 80 mg PO QHS #30 tablet 06/29/18 History of Present Illness History of Present Illness: PILAR KUMAR is a 53 year old woman who has past medical history significant for tobacco use disorder, COPD, ulcerative colitis. 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 Then her arm became very heavy and she lost sensation. She felt a little bit weak as well. The patient also had some dyspnea, diaphoresis , nausea. She states that her friends were asking her questions when the events were taking place and she could not remember her age. She drove herself to the ER. Now she states she feels back to normal. Generally she remembers all of the events, did not lose consciousness, does remember being somewhat confused momentarily. She is admitted to the hospitalist service for evaluation for cerebrovascular and cardiovascular disease causing symptoms Hospital Course Hospital Course: Shunt was admitted to telemetry bed. Her symptoms had resolved by the time she reached the emergency room. An MRI was done which showed no abnormality. A CT was also done of the head which showed no abnormality. A question of a pulmonary nodule on chest x-ray resulted in consultation with Dr. Ohara of pulmonary who performed a CT of the chest. No nodule was noted but there was emphysematous changes. Patient underwent tobacco cessation counseling and was initiated on Symbicort. Because her presenting complaint was chest pain with left arm tingling and numbness it was also suspected that she may have coronary disease. She was scheduled for a nuclear stress test which showed no inducible ischemia. Patient's workup besides imaging studies included a carotid Doppler which did reveal accelerating velocities in the right there was no direct plaque visualized by ultrasound however based on velocity estimates it was 50-69%. With the patient's symptoms resolved she was given the smoking cessation counseling which she stated she would not smoke any longer. Discharged on aspirin for antiplatelet therapy and Zocor. She is to follow-up with her primary care provider in 10-14 days. Physical Exam Vital Signs: Temp Pulse Resp BP Pulse Ox 98.0 F 75 18 123/77 98 06/29/18 11:26 06/29/18 11:26 06/29/18 11:26 06/29/18 11:26 06/29/18 11:26 Pulse Oximeter Nocturnal Start: 06/28/18 10: 40 Freq: HSP Status: Active Document 06/29/18 00:06 SFL (Rec: 06/29/18 00:07 SFL [id number]) Nocturnal Pulse Oximetry Equipment Usage Initial Set Up Nocturnal Spo2 Charge Charge Now Oxygen Delivery Method (includes room Room Air air) O2 Sat by Pulse Oximetry (92-100) 96 Continuous Pulse Oximeter Set Up Yes Continuous SpO2 Machine # 3 Intake & Output 06/28/18 06/29/18 06/30/18 06:59 06:59 06:59 Intake Total 444 2158 459 Balance 444 2158 459 Weight 63.7 kg 62.3 kg General appearance: PRESENT: no acute distress, well-developed, well-nourished Eye exam: PRESENT: conjunctiva pink, EOMI, PERRLA. ABSENT: scleral icterus Neck exam: ABSENT: carotid bruit, JVD, lymphadenopathy, thyromegaly Respiratory exam: PRESENT: clear to auscultation marilynn. ABSENT: rales, rhonchi, wheezes Cardiovascular exam: PRESENT: RRR. ABSENT: diastolic murmur, rubs, systolic murmur GI/Abdominal exam: PRESENT: normal bowel sounds, soft. ABSENT: distended, guarding, mass, organolmegaly, rebound, tenderness Extremities exam: PRESENT: full ROM. ABSENT: calf tenderness, clubbing, pedal edema Neurological exam: PRESENT: alert, awake, oriented to person, oriented to place , oriented to time, oriented to situation, CN II-XII grossly intact. ABSENT: motor sensory deficit Results Laboratory Results: 06/28/18 07:15 06/29/18 06:17 06/29/18 06:17 Sodium 139.6 Potassium 4.1 Chloride 108 H Carbon Dioxide 25 Anion Gap 7 BUN 12 Creatinine 0.57 Est GFR ( Amer) > 60 Est GFR (Non-Af Amer) > 60 Glucose 87 Calcium 9.5 06/27/18 06/27/18 06/28/18 19:35 19:35 01:19 Creatine Kinase 39 32 CK-MB (CK-2) 0.48 Troponin I < 0.012 06/28/18 06/28/18 06/28/18 01:19 07:15 07:15 Creatine Kinase 29 L CK-MB (CK-2) 0.30 0.30 Troponin I < 0.012 < 0.012 Impressions: Head MRI 06/27/18 00:00 IMPRESSION: NORMAL MRI OF THE BRAIN WITHOUT INTRAVENOUS GADOLINIUM CONTRAST. EVIDENCE OF ACUTE STROKE: NO. Chest X-Ray 06/27/18 12:28 IMPRESSION: NO ACUTE RADIOGRAPHIC FINDING IN THE CHEST. Head CT 06/27/18 12:28 IMPRESSION: NORMAL BRAIN CT WITHOUT CONTRAST. EVIDENCE OF ACUTE STROKE: NO. Carotid Doppler Study 06/27/18 15:58 IMPRESSION: 1. No hemodynamically significant stenosis on the left. 2. Slowly elevated velocities in the distal right ICA. No significant plaque at this site. Based on velocities degree of stenosis is between 50 and 69%. Chest CT 06/28/18 00:00 IMPRESSION: NO SIGNIFICANT FINDING ON NON-CONTRASTED CHEST CT. Qualifiers - * PATIENT BEING DISCHARGED WITH ANY OF THE FOLLOWING DIAGNOSIS: No Plan Time Spent: Greater than 30 Minutes
--- NOTE | 2018-07-01 19:29 | DRAGON STRESS TEST REPORT ---
Intravenous Lexiscan Cardiolite stress test using single photon emmision computerized tomography. Date of procedure: 06/29/2018. Ordering Provider: Dr. Andrea Junior. Patient' s status: In Patient. Indication: Chest pain. Coronary risk factors: Age, dyslipidemia, and history of tobacco abuse. Resting EKG: Sinus Rhythm. Within normal limits. Stress EKG: No changes of ischemia. Reason for termination: Protocol. Conclusions: Normal EKG and hemodynamic response to IV Lexiscan. Nuclear data: At rest the patient was given 10.08 millicuries of technetium 99m sestamibi injected intravenously. As per protocol rest non gated SPECT images were obtained. Subsequently the patient was given intravenous Lexiscan at a dose of 0.4 mg in 5 mL intravenously, followed by flush with normal saline. Subsequently the stress dose of 32.5 millicuries of technetium 99m sestamibi was injected intravenously. As per protocol stress gated images were obtained. Nuclear interpretation: Review of images showed that there was bowel and liver contamination artifact of the inferior wall. In spite of this all segments of the myocardium had normal perfusion at rest, and normal perfusion post stress with IV Lexiscan. All segments of the myocardium had normal motion, contraction, and thickening by gated study. T. I D. ratio was normal at . Computer read rest, and stress left ventricular ejection fraction were 61 %, and 59 %, respectively. 1. There is no scintigraphic evidence of Lexiscan induced myocardial ischemia. 2. There is no scintigraphic evidence of myocardial infarction/scar. Recommendations: Aggressive risk factor modification, and treating the underlying co- morbidities. MTDD
--- NOTE | 2018-07-02 11:43 | PDOC CONSULTATION ---
Consultation Consult Date: 06/28/18 Attending physician:: MIGUELANGEL RILEY Consult reason:: DEMARCO History of Present Illness Admission Date/PCP: 06/27/18 15:09 History of Present Illness: PILAR KUMAR is a 53 year old female denies shortness of breath admits to dyspnea on exertion with a to dyspnea on exertion cough is nonproductive she presented initially because she had left-sided weakness as well as some chest discomfort time she presented this had resolved considerably but she is been worked up to rule out CA and CVA. She denies hemoptysis her PPD status is unknown she has no history of chronic lung disease as a child or adolescent she missed exposure large amounts of passive smoke as a child as well as an adult she herself has smoked 1/2 packs a day for 35 years and continues to smoke up until the time of admission denies any significant exposure to potential occupational respiratory toxins no pets no recent travel sleeps on 1-2 pillows no PND occasional nocturnal cough no edema she denies snoring admits to restless sleep nocturia 2-3 times per night unrestful sleep and she does admit to some daytime somnolence. Past Medical History Cardiac Medical History: Denies: Atrial Fibrillation, Congestive Heart Failure, Coronary Artery Disease, Myocardial Infarction Pulmonary Medical History: Reports: Chronic Obstructive Pulmonary Disease (COPD) EENT Medical History: Reports: Eyes Denies: Cataracts Neurological Medical History: Denies: Ischemic CVA, Seizures Endocrine Medical History: Denies: Diabetes Mellitus Type 2, Hyperthyroidism, Hypothyroidism Renal/ Medical History: Denies: Chronic Kidney Disease Malignancy Medical History: Denies: None GI Medical History: Reports: Ulcerative Colitis Musculoskeltal Medical History: Denies: Arthritis Skin Medical History: Denies: Eczema, Psoriasis Psychiatric Medical History: Reports: Tobacco Dependency Denies: Depression Traumatic Medical History: Denies: None Hematology: Denies: Anemia, Bleeding Tendencies Infectious Medical History: Denies: Clostridium Difficile, Hepatitis B, Hepatitis C, HIV, Methicillin- Resistant Staph Aureus Past Surgical History Past Surgical History: Reports: Hysterectomy, Other - Patient has had 2 laparoscopic surgeries for endometriosis Social History Lives with: Family Smoking Status: Current Every Day Smoker Cigarettes Packs Per Day: 1 Number of Years Smokin Passive smoke exposure as: Both Frequency of Alcohol Use: Occasional Hx Recreational Drug Use: No Drugs: None Hx Prescription Drug Abuse: No Do you have pets?: No Have you had any respiratory illnesses as a child?: No Have you been exposed to any sick contacts recently?: No Have you had any recent respiratory illnesses?: No Have you travelled outside of [place] in the past 12 months?: No - Advance Directive Resuscitation Status: Full Code Family History Family History: Malignancy Parental Family History Reviewed: Yes Children Family History Reviewed: Yes Sibling(s) Family History Reviewed.: Yes Medication/Allergy Home Medications: Aspirin [Ecotrin 325 mg EC Tablet] 325 mg PO DAILY tabec 06/29/18 Budesonide/Formoterol Fumarate [Symbicort HFA 80-4.5 mcg Inhaler 6.9 gm] 2 puff IH Q12 #1 inhaler 06/29/18 Nicotine [Nicoderm 21 mg/24 Hr Transderm Patch] 1 each TD DAILYP PRN patch.td24 06/29/18 Simvastatin [Zocor 40 mg Tablet] 80 mg PO QHS #30 tablet 06/29/18 Allergies/Adverse Reactions: No Known Allergies Allergy (Unverified 06/27/18 12:03) Review of Systems Constitutional: PRESENT: fatigue. ABSENT: night sweats Eyes: ABSENT: visual disturbances Ears: ABSENT: hearing changes Nose, Mouth, and Throat: ABSENT: mouth pain Cardiovascular: ABSENT: edema, orthropnea, palpitations Respiratory: PRESENT: dyspnea. ABSENT: hemoptysis Gastrointestinal: ABSENT: abdominal pain, bloating, coffee ground emesis, dysphagia, hematemesis, hematochezia, melena Genitourinary: ABSENT: dysuria, hematuria Musculoskeletal: ABSENT: deformity, joint swelling Integumentary: ABSENT: lesions, pruritus, rash Neurological: PRESENT: tingling, weakness. ABSENT: abnormal movements, frequent falls, lack of coordination, syncope Psychiatric: ABSENT: hallucinations, homidical ideation, suicidal ideation Endocrine: ABSENT: cold intolerance, heat intolerance, polydipsia, polyuria Hematologic/Lymphatic: ABSENT: easy bruising Allergic/Immunologic: ABSENT: seasonal rhinorrhea Physical Exam Vital Signs: Temp Pulse Resp BP Pulse Ox 97.7 F 69 16 110/66 93 06/28/18 07:50 06/28/18 08:35 06/28/18 08:35 06/28/18 07:50 06/28/18 08:35 Intake & Output 06/27/18 06/28/1806/29/18 06:59 06:59 06:59 Intake Total 444 Balance 444 Weight 63.7 kg General appearance: PRESENT: no acute distress, cooperative, disheveled, well- developed, well-nourished Head exam: PRESENT: atraumatic, normocephalic Eye exam: PRESENT: conjunctiva pale, EOMI. ABSENT: nystagmus, scleral icterus Mouth exam: PRESENT: dry mucosa, neck supple, tongue midline Neck exam: ABSENT: carotid bruit, JVD, lymphadenopathy, thyromegaly, tracheal deviation, tracheostomy Respiratory exam: PRESENT: decreased breath sounds, prolonged expiratory phas, rhonchi, unlabored. ABSENT: rales, retraction, stridor, tachypnea Cardiovascular exam: PRESENT: RRR, +S1, +S2 Pulses: PRESENT: normal radial pulses GI/Abdominal exam: PRESENT: soft. ABSENT: tenderness Extremities exam: ABSENT: calf tenderness, clubbing, joint swelling Musculoskeletal exam: ABSENT: deformity, dislocation Neurological exam: PRESENT: alert, awake Psychiatric exam: PRESENT: flat affect Skin exam: PRESENT: dry, warm Results Laboratory Results: 06/28/18 07:15 06/28/18 07:15 06/28/18 06/28/18 07:15 07:15 WBC 6.3 RBC 4.30 Hgb 13.4 Hct 39.2 MCV 91 MCH 31.3 MCHC 34.3 RDW 14.3 H Plt Count 323 Sodium 138.5 Potassium 4.2 Chloride 105 Carbon Dioxide 27 Anion Gap 7 BUN 15 Creatinine 0.69 Est GFR ( Amer) > 60 Est GFR (Non-Af Amer) > 60 Glucose 89 Calcium 9.5 Triglycerides 80 Cholesterol 205.77 H LDL Cholesterol Direct 135 H VLDL Cholesterol 16.0 HDL Cholesterol 55 06/27/18 06/27/18 06/28/18 19:35 19:35 01:19 Creatine Kinase 39 32 CK-MB (CK-2) 0.48 Troponin I < 0.012 06/28/18 06/28/18 06/28/18 01:19 07:15 07:15 Creatine Kinase 29 L CK-MB (CK-2) 0.30 0.30 Troponin I < 0.012 < 0.012 Impressions: Head MRI 06/27/18 00:00 IMPRESSION: NORMAL MRI OF THE BRAIN WITHOUT INTRAVENOUS GADOLINIUM CONTRAST. EVIDENCE OF ACUTE STROKE: NO. Chest X-Ray 06/27/18 12:28 IMPRESSION: NO ACUTE RADIOGRAPHIC FINDING IN THE CHEST. Head CT 06/27/18 12:28 IMPRESSION: NORMAL BRAIN CT WITHOUT CONTRAST. EVIDENCE OF ACUTE STROKE: NO. Carotid Doppler Study 06/27/18 15:58 IMPRESSION: 1. No hemodynamically significant stenosis on the left. 2. Slowly elevated velocities in the distal right ICA. No significant plaque at this site. Based on velocities degree of stenosis is between 50 and 69%. Assessment & Plan - Diagnosis (1) COPD (chronic obstructive pulmonary disease) Is this a current diagnosis for this admission?: Yes Plan: DALTON+LABA+LAMA+ICCS (2) Lung nodule Is this a current diagnosis for this admission?: Yes Plan: Chest CT (3) Tobacco use disorder Is this a current diagnosis for this admission?: Yes Plan: stop smoking (4) Daytime somnolence Is this a current diagnosis for this admission?: Yes Plan: needs sleep study reported apnea
--- NOTE | 2018-07-05 14:47 | Pulmonary Function Test ---
Pulmonary Function Test Date of Procedure:: 07/05/18 INDICATION:: Shortness of breath Referring Provider: Dr. John Pink - Report Spirometry: FVC 2.49 L 79% postbronchodilator 2.62 L 82% FEV1 1.99 L 76% postbronchodilator 2.01 L 77% FEV1/FVC % 84 postbronchodilator 81 predicted 80 FEF 25-75% 2.67 L 99% postbronchodilator 2.55 L 88% Impression: No obstructive ventilatory defect. Restrictive defect is implied but cannot be diagnosed based on on spirometry alone.If clinically indicated complete pulmonary function test would be warranted
== END 2018-06-29 15:04 | disposition home or self-care (01) ==
LOC: ER 12:00 → EH 15:09 → 3S 18:59
PROVIDERS: ADMIT Internal Medicine; ATTEND Internal Medicine
PROC: HZ31ZZZ Individual Counseling for Substance Abuse Treatment, Behavioral (ICD-10-PCS; principal; 2018-06-27)
DX: R07.89 Other chest pain (principal); J44.9 Chronic obstructive pulmonary disease, unspecified; I65.21 Occlusion and stenosis of right carotid artery; G45.9 Transient cerebral ischemic attack, unspecified; F17.210 Nicotine dependence, cigarettes, uncomplicated; R53.83 Other fatigue; R40.0 Somnolence; K51.90 Ulcerative colitis, unspecified, without complications; R11.0 Nausea; Z80.9 Family history of malignant neoplasm, unspecified; Z79.82 Long term (current) use of aspirin; Z79.899 Other long term (current) drug therapy; Z82.49 Family history of ischemic heart disease and other diseases of the circulatory system
CPT/HCPCS: 93005; 99285; 36415 ×3; 82553 ×2; 82962 ×2; 82550 ×2; 85025; 85027; 85610; 85730; 80048 ×2; 80053; 84484 ×2; 83036; 80061; 93306; 93017; 93880; 70551; 71045; 78452; 70450; 71250; 93010; 94010; 94640 ×2; 94762; 94761; 97530; 97116; 97163; 97166; 99406; G0378 ×4; A9500; J2785; J3490 ×3; J1650 ×2; J7620 ×2; Q9969